=== PATIENT | female | born 2000 ===

== ENCOUNTER 2018-03-12 12:56 | Outpatient (CLI) | payer OTHER ==
[~2018-03-12] VITALS: Ht 152.4 cm; Wt 65.8 kg
== END 2018-03-12 13:15 | disposition home or self-care (01) ==
LOC: OFIC 805 12:56
DX: J30.89 Other allergic rhinitis (principal); J35.2 Hypertrophy of adenoids; J34.3 Hypertrophy of nasal turbinates

== ENCOUNTER 2018-04-22 12:06 | Outpatient (CLI) | payer OTHER ==
[~2018-04-22] VITALS: Ht 152.4 cm; Wt 65.8 kg
== END 2018-04-22 12:20 | disposition home or self-care (01) ==
LOC: OFIC 805 12:06
DX: J30.89 Other allergic rhinitis (principal); J34.3 Hypertrophy of nasal turbinates